=== PATIENT | male | born 1970 | race African-American/Black ===

== ENCOUNTER 2023-02-27 19:43 | Observation (INO) | payer BC ==
[2023-02-27 22:32] LABS: #Eosinphils 0.3 10x3/uL (0.0-0.5); #Monocytes 0.7 10x3/uL (0.0-1.1); #Neutrophils 4.8 10x3/uL (1.5-8.4); %Basophils 0.4 % (0.0-2.0); %Eosinophils 3.9 % (0.0-6.0); %Lymphocytes 29.4 % (18.0-47.0); %Monocytes 7.9 % (0.0-10.0); %Neutrophils 57.9 % (40.0-75.0); Hematocrit 42.9 % (38.8-50.0); Mean Corpuscular HGB CONC 32.6 g/dL (32.0-36.0); Mean Corpuscular Hemoglobin 29.9 pg (27.0-33.0); Mean Corpuscular Volume 91.5 fl (81.2-95.1); Mean Platelet Volume 11.4 fl (7.4-10.4); Platelet Count 253 10x3/uL (150-450); Red Blood Cell (RBC) Count 4.69 10x6/uL (4.32-5.72); White Blood Cell (WBC) Count 8.2 10x3/uL (3.5-10.5)
[2023-02-27] MEDS ORDERED: Acetaminophen 325 MG TAB PO PRN (23:26)
[2023-02-27] MEDS ORDERED: Amlodipine 5 MG TAB PO SCH (23:30)
[2023-02-27 23:44] LABS: INR-International Normal Ratio 0.9; PTT 27.6 sec (22.0-33.0); Prothrombin Time 9.9 sec (9.5-12.1)
[2023-02-28 01:47] VITALS: BMI 39.1
[2023-02-28 04:36] LABS: Anion Gap 10 mmol/L (10-20); BUN (Urea Nitrogen) 9 mg/dL (8.4-25.7); Calc. Creatinine Clearance 161 mL/min (70-130); Calcium 9.4 mg/dL (7.8-10.44); Carbon Dioxide 30 mmol/L (22-29); Chloride 104 mmol/L (98-107); Estimated GFR 104; Glucose 100 mg/dL (70-105); Magnesium 1.6 mg/dL (1.6-2.6); Potassium 4.6 mmol/L (3.5-5.1); Sodium 139 mmol/L (136-145)
[2023-02-28] MEDS ORDERED: Enoxaparin 120 MG/0.8 ML SYRINGE SC SCH (09:00)
[2023-02-28] MEDS ORDERED: Amlodipine 10 MG TAB PO SCH (09:00)
[2023-02-28 17:40] VITALS: BP 140/93; TEMP 99
== END 2023-02-28 17:20 | disposition home or self-care (01) ==
LOC: CSHERS 19:43 → CSHERHOLD 22:22 → CSHTELE 02-28 08:34
PROVIDERS: ADMIT Family Medicine; ATTEND Family Medicine
DX: I82.502 Chronic embolism and thrombosis of unspecified deep veins of left lower extremity (principal); I10 Essential (primary) hypertension; F14.10 Cocaine abuse, uncomplicated; Z88.0 Allergy status to penicillin; Z88.8 Allergy status to other drugs, medicaments and biological substances; Z86.711 Personal history of pulmonary embolism; Z90.89 Acquired absence of other organs; Z87.891 Personal history of nicotine dependence
CPT/HCPCS: 36415; 80048; 83735; 85025; 85379; 85610; 85730; 93970; 96372; G0378; J1650